=== PATIENT | female | born 1995 | race American Indian/Alaskan Native ===

== ENCOUNTER 2017-04-16 11:17 | Emergency (ER) | payer SELFPAY ==
[2017-04-16 11:43] VITALS: BP 114/43
[2017-04-16 12:11] LABS: Hematocrit 32.4 % (30.3-42.9); Hemoglobin 10.8 gm/dl (10.1-14.3); Mean Corpuscular HGB Conc 34 % (30-34); Mean Corpuscular Hemoglobin 28 pg (28-32); Mean Corpuscular Volume 82 fl (79-97); Platelet Count 232 K/mm3 (140-440); Red Blood Count 3.93 M/mm3 (3.65-5.03); Red Cell Distribution Width 16.3 % (13.2-15.2)
[2017-04-16 12:36] LABS: HCG Qualitative,Urine Positive (Negative)
[2017-04-16 12:40] LABS: Amorphous Crystals,Urine Few; Bacteria,Urine 1+ /HPF (Negative); Bilirubin,Urine NEG (Negative); Blood,Urine NEG (Negative); Color,Urine Yellow (Yellow); Mucus,Urine FEW /HPF; Protein,Urine <15 mg/dL mg/dL (Negative)
[2017-04-16 13:39] LABS: BUN/Creatinine Ratio 14; Blood Urea Nitrogen 7 mg/dL (7-17); Calcium 8.8 mg/dL (8.4-10.2); Hemolysis Index 1
--- NOTE | 2017-04-16 13:48 | Ultrasound Report ---
FINAL REPORT EXAM: US OB > = 14 WEEKS FETUS HISTORY: cramps and bleeding TECHNIQUE: Transabdominal OB ultrasound. PRIORS: None currently available. FINDINGS: Single intrauterine dates 15.5 weeks. BRYCE equals October 03, 2017. BPD: 16.0 weeks. HC: 15.6 weeks. AC: 15.6 weeks. FL: 15.1 weeks. Presentation: Cephalic. Placenta: Anterior. No previa. heart rate: 150 BPM. Amniotic fluid index: Within normal limits. Closed cervix measures 4.9 cm. Cephalic index is borderline upper limits of normal at 89.9. AC/AC ratio equals 1.21 and is within normal limits. IMPRESSION: Single live intrauterine .
[2017-04-16] MEDS ORDERED: MACROBID PO ONE (14:11)
--- NOTE | 2017-04-16 14:25 | Emergency Department Report ---
HPI - General Chief Complaint: Abdominal Pain Time Seen by Provider: 04/16/17 14:10 - HPI HPI: 32-year-old female presents to the emergency department with complaint of some vaginal bleeding today while . She was at work and says that she went to urinate and passed a small quarter-sized clot this morning. She has a mild amount of cramping as well. She is currently about 16 weeks at . She has an [facility] "on the street" but cannot currently remember the name or the practice name. She has not taken anything for her symptoms prior to presentation. She otherwise denies any other past medical history. No recent travel or sick contacts at home. She denies any fever, nausea, vomiting, vaginal discharge. ED Past Medical Hx - Past Medical History Hx Hypertension: No Hx Congestive Heart Failure: No Hx Diabetes: No Hx Deep Vein Thrombosis: No Hx Renal Disease: No Hx Sickle Cell Disease: No Hx Seizures: No Hx Asthma: No Hx COPD: No Hx HIV: No - Surgical History Past Surgical History?: No - Social History Smoking Status: Never Smoker Substance Use Type: None - Medications Home Medications: Home Medications Medication Instructions Recorded Confirmed Last Taken Type Tablet 1 tab PO DAILY 05/20/14 05/20/14 05/19/14 15:00 History 1 tab Ferrous Sulfate [Feosol 325 MG tab] 325 mg PO BID #60 tablet 05/21/14 Unknown Rx Ibuprofen [Motrin 600 MG tab] 600 mg PO Q6H #30 tablet 05/21/14 Unknown Rx Nitrofurantoin [place]/M-Cryst 100 mg PO Q12HR #14 capsule 04/16/17 Unknown Rx [Macrobid CAP] ED Review of Systems ROS: Stated complaint: /Bleeding 16W Other details as noted in HPI Comment: All other systems reviewed and negative Constitutional: denies: chills, fever Eyes: denies: eye pain, eye discharge, vision change ENT: denies: ear pain, throat pain Respiratory: denies: cough, shortness of breath, wheezing Cardiovascular: denies: chest pain, palpitations Gastrointestinal: denies: vomiting, diarrhea Genitourinary: other (vaginal bleeding). denies: dysuria, discharge Musculoskeletal: denies: back pain, joint swelling, arthralgia Skin: denies: rash, lesions Neurological: denies: headache, weakness, paresthesias Physical Exam - Physical Exam Vital Signs: Vital Signs 04/16/17 11:43 Temperature 98.5 F Pulse Rate 71 Respiratory 16 Rate Blood Pressure 114/43 [Right] O2 Sat by Pulse 100 Oximetry Physical Exam: GENERAL: The patient is well-developed well-nourished. HENT: Normocephalic. Atraumatic. Patient has moist mucous membranes. EYES: Extraocular motions are intact. Pupils equal reactive to light bilaterally. NECK: Supple. Trachea is midline. CHEST/LUNGS: Clear to auscultation. There is no respiratory distress noted. HEART/CARDIOVASCULAR: Regular. There is no tachycardia. There is no murmur. ABDOMEN: Abdomen is soft, nontender. Patient has normal bowel sounds. There is no abdominal distention. SKIN: Skin is warm and dry. NEURO: The patient is awake, alert, and oriented. The patient is cooperative. The patient has no focal neurologic deficits. The patient has normal speech. MUSCULOSKELETAL: There is no tenderness or deformity. There is no limitation range of motion. There is no evidence of acute injury. ED Course Vital Signs 04/16/17 11:43 Temperature 98.5 F Pulse Rate 71 Respiratory 16 Rate Blood Pressure 114/43 [Right] O2 Sat by Pulse 100 Oximetry ED Medical Decision Making - Lab Data Result diagrams: 04/16/17 11:53 04/16/17 11:53 - Radiology Data Radiology results: report reviewed EXAM: US OB gt; = 14 WEEKS FETUS HISTORY: cramps and bleeding TECHNIQUE: Transabdominal OB ultrasound. PRIORS: None currently available. FINDINGS: Single intrauterine dates 15.5 weeks. BRYCE equals October 03, 2017. BPD: 16.0 weeks. HC: 15.6 weeks. AC: 15.6 weeks. FL: 15.1 weeks. Presentation: Cephalic. Placenta: Anterior. No previa. heart rate: 150 BPM. Amniotic fluid index: Within normal limits. Closed cervix measures 4.9 cm. Cephalic index is borderline upper limits of normal at 89.9. AC/AC ratio equals 1.21 and is within normal limits. IMPRESSION: Single live intrauterine . Transcribed By: TYM Dictated By: ROSY KAPADIA MD Electronically Authenticated By: ROSY KAPADIA MD Signed Date/Time: 04/16/17 0943 - Medical Decision Making Patient presents with some mild vaginal bleeding and a small clot while . Labs are mostly unremarkable but she does have a very mild urinary tract infection. She will be treated with Macrobid. Ultrasound shows a live intrauterine at about 16 weeks. She will be given the diagnosis of a threatened miscarriage but understands that the ultrasound shows a live intrauterine . She will continue with vitamins. She will take the antibiotics as prescribed. She will follow up with her [facility] in the next 2 days and will return for any worsening of her symptoms or any acute distress. - Differential Diagnosis , threatened miscarriage, spontaneous miscarriage, fibroids Critical Care Time: No Critical care attestation.: If time is entered above; I have spent that time in minutes in the direct care of this critically ill patient, excluding procedure time. ED Disposition Clinical Impression: Threatened miscarriage Qualifiers: Weeks of gestation: 15 weeks Qualified Code(s): Z3A.15 - 15 weeks gestation of UTI (urinary tract infection) Qualifiers: Urinary tract infection type: acute cystitis Hematuria presence: without hematuria Qualified Code(s): N30.00 - Acute cystitis without hematuria Disposition: TO HOME OR SELFCARE Is pt being admited?: No Condition: Stable Instructions: (ED), Threatened Miscarriage (ED), Urinary Tract Infection in Women (ED) Additional Instructions: Please follow-up with your [facility] in the next 2 days. Return to the emergency Department with any worsening of your symptoms including increased bleeding, increased pelvic cramping/pain, or with any acute distress. Please exhibit pelvic rest which includes no sexual activity and nothing is to be placed inside of the vagina. You should also try and avoid any exertion or lifting anything greater than 5 or 10 pounds. She knew with your vitamins. You can take Tylenol every 4 hours, using weight-based dosing, as needed for any discomfort. Other than the vitamins, Tylenol, and the Macrobid for your UTI, please do not take anything that is not prescribed by a physician. Prescriptions: Nitrofurantoin [place]/M-Cryst [Macrobid CAP] 100 mg PO Q12HR #14 capsule Referrals: Kit [facility] [Other] - [facility] Time of Disposition: 14:25
== END 2017-04-16 14:35 | disposition home or self-care (01) ==
LOC: ED 11:17
DX: O20.0 Threatened abortion (principal); Z3A.15 15 weeks gestation of pregnancy; O23.32 Infections of other parts of urinary tract in pregnancy, second trimester
CPT/HCPCS: 36415; 76805; 80048; 81001; 81025; 84702; 85027; 86900; 86901

== ENCOUNTER 2017-05-22 11:44 | Outpatient (CLI) | payer OTHER ==
[2017-05-22 12:18] VITALS: BP 116/55
[2017-05-22 14:03] LABS: Bilirubin,Urine NEG (Negative); Blood,Urine NEG (Negative); Color,Urine Yellow (Yellow); Hyaline Casts,Urine 1 /LPF; Mucus,Urine 1+ /HPF; Protein,Urine <15 mg/dL mg/dL (Negative)
[2017-05-22] MEDS ORDERED: LACTATED RINGERS 500 ML IV ONE (14:30)
== END 2017-05-22 15:11 | disposition home or self-care (01) ==
LOC: TRG 11:44
PROVIDERS: ATTEND Obstetrics & Gynecology
DX: O47.02 False labor before 37 completed weeks of gestation, second trimester (principal); Z3A.22 22 weeks gestation of pregnancy
CPT/HCPCS: 59025; 81001

== ENCOUNTER 2017-08-29 07:39 | Outpatient (CLI) | payer OTHER ==
[2017-08-29] MEDS ORDERED: LACTATED RINGERS 1,000 ML IV ONE (08:09)
[2017-08-29 08:52] LABS: Bacteria,Urine 1+ /HPF (Negative); Bilirubin,Urine NEG (Negative); Blood,Urine NEG (Negative); Color,Urine Yellow (Yellow); Mucus,Urine FEW /HPF
[2017-08-29 09:31] VITALS: BP 97/60
[2017-08-29] MEDS ORDERED: TYLENOL PO ONE (09:44)
[2017-08-29] MEDS ORDERED: ZOFRAN IV ONE (09:44)
== END 2017-08-29 10:30 | disposition home or self-care (01) ==
LOC: TRG 07:39
PROVIDERS: ATTEND Obstetrics & Gynecology
DX: O47.03 False labor before 37 completed weeks of gestation, third trimester (principal); Z3A.35 35 weeks gestation of pregnancy
CPT/HCPCS: 59025; 81001; 96360; 96361; 96374; J2405; J7120

== ENCOUNTER 2021-10-21 22:09 | Outpatient (CLI) | payer OTHER ==
[2021-10-21 23:37] VITALS: BP 109/58
== END 2021-10-22 00:25 | disposition home or self-care (01) ==
LOC: EDSTATUS 22:42 → TRG 22:47 → APU 22:48 → TRG 10-22 00:25
PROVIDERS: ATTEND Obstetrics & Gynecology
DX: Z34.92 Encounter for supervision of normal pregnancy, unspecified, second trimester (principal); Z3A.21 21 weeks gestation of pregnancy
CPT/HCPCS: 59025